=== PATIENT | male | born 1975 | race Hispanic/Latino ===

== ENCOUNTER 2017-03-10 18:12 | Emergency (ER) | payer OTHER ==
[~2017-03-10] VITALS: Ht 167.6 cm; Wt 79.0 kg
[~2017-03-10 18:12] MED LIST: AMOXICILLIN500 MG PO; BACTRIM DS1 TAB PO; LORTAB 5 OR; NO
[2017-03-10] MEDS ORDERED: ULTRAM50 M1 PO (19:47)
[2017-03-10] MEDS ORDERED: AMOXICILLIN500 MG PO (19:47)
[2017-03-10 20:05] VITALS: BP 150/87
== END 2017-03-10 20:06 | disposition home or self-care (01) | DRG 605 ==
LOC: ED 18:12
PROC: 0HQ1XZZ Repair Face Skin, External Approach (ICD-10-PCS; principal; 2017-03-10)
DX: S01.81XA Laceration without foreign body of other part of head, initial encounter (principal); S01.511A Laceration without foreign body of lip, initial encounter; W22.8XXA Striking against or struck by other objects, initial encounter; Y93.H2 Activity, gardening and landscaping; Y92.007 Garden or yard of unspecified non-institutional (private) residence as the place of occurrence of the external cause

== ENCOUNTER 2018-11-11 06:23 | Emergency (ER) | payer OTHER ==
[~2018-11-11] VITALS: Ht 167.6 cm; Wt 84.0 kg
[~2018-11-11 06:23] MED LIST changes: +ULTRAM50 M1 PO
[2018-11-11] MEDS ORDERED: FLEXERIL PO (07:56)
[2018-11-11] MEDS ORDERED: TORADOL PO (07:56)
[2018-11-11 07:59] VITALS: BP 121/86
== END 2018-11-11 08:11 | disposition home or self-care (01) | DRG 552 ==
LOC: ED 06:23
DX: S13.9XXA Sprain of joints and ligaments of unspecified parts of neck, initial encounter (principal); V49.49XA Driver injured in collision with other motor vehicles in traffic accident, initial encounter; Y92.414 Local residential or business street as the place of occurrence of the external cause